=== PATIENT | male | born 1990 ===

== ENCOUNTER 2022-01-21 18:37 | Emergency (ER) ==
[2022-01-21] MEDS ORDERED: Albuterol/Ipratropium 3.0-0.5 MG/3 ML Neb Soln INH ONE (19:45)
[2022-01-21] MEDS ORDERED: predniSONE 20 MG Tab PO ONE (19:45)
== END 2022-01-23 20:50 | disposition home or self-care (01) ==
LOC: MW.ED 18:37
DX: J40 Bronchitis, not specified as acute or chronic (principal)
CPT/HCPCS: 71045; 99283; A9270; J7620-GY